=== PATIENT | male | born 1960 | race Caucasian/White ===

== ENCOUNTER 2022-12-31 12:30 | Outpatient (CLI) | payer BC | END 2022-12-31 12:31 | disposition home or self-care (01) | LOC: PET 12:30 | PROVIDERS: ATTEND Internal Medicine Hematology & Oncology | DX: C07 Malignant neoplasm of parotid gland (principal); C44.42 Squamous cell carcinoma of skin of scalp and neck | CPT/HCPCS: 78815; A9552 ==

== ENCOUNTER 2023-06-23 08:41 | Outpatient (CLI) | payer BC ==
[2023-06-23] MEDS ORDERED: Iopamidol 370 76% 100 ML VIAL ONE (12:49)
== END 2023-06-23 08:42 | disposition home or self-care (01) ==
LOC: CT 08:41
PROVIDERS: ATTEND Radiology Radiation Oncology
DX: C07 Malignant neoplasm of parotid gland (principal); J38.7 Other diseases of larynx
CPT/HCPCS: 70491

== ENCOUNTER 2025-04-13 10:14 | Outpatient (CLI) | payer BC | END 2025-04-13 10:15 | disposition home or self-care (01) | LOC: RAD 10:14 | PROVIDERS: ATTEND Radiology Radiation Oncology | DX: R91.1 Solitary pulmonary nodule (principal) | CPT/HCPCS: 71046 ==

== ENCOUNTER 2025-06-06 08:01 | Outpatient (CLI) | payer BC | END 2025-06-06 08:02 | disposition home or self-care (01) | LOC: SCSMRI 08:01 | PROVIDERS: ATTEND Family Medicine | DX: M54.14 Radiculopathy, thoracic region (principal); M47.816 Spondylosis without myelopathy or radiculopathy, lumbar region; M41.9 Scoliosis, unspecified; M43.8X4 Other specified deforming dorsopathies, thoracic region; M71.38 Other bursal cyst, other site; M43.16 Spondylolisthesis, lumbar region | CPT/HCPCS: 72146; 72148 ==